=== PATIENT | male | born 1970 | race Caucasian/White ===

== ENCOUNTER 2021-02-14 12:11 | Emergency (ER) | payer BC, SELFPAY ==
[2021-02-14 12:28] VITALS: BP 90/64; PULSE 106; RESP 12; TEMP 36.6; O2SAT 98
[2021-02-14 13:24] VITALS: BP 103/64; PULSE 85
--- NOTE | 2021-02-14 13:27 | ED.SKABFB ---
HPI - Skin/Abscess/Foreign Bdy General Chief complaint: Skin/Abscess/Foreign Body Stated complaint: rash/swelling Time Seen by Provider: 02/14/21 12:30 Source: patient and RN notes reviewed Mode of arrival: ambulatory Limitations: no limitations History of Present Illness HPI narrative: Patient presents today complaining of hives that began on his legs, abdomen, feet, arms since yesterday, but significantly worse since this morning. Unsure what has caused the hives. He reports mild swelling to his lower lip and some swelling of his bilateral hands that started 30 minutes prior to arrival. He took 50 mg of Benadryl at 9:00 this morning and does report a mild improvement. Denies shortness of breath, difficulty swallowing. Unrelated, patient reports poison heidy that has been present over the abdomen and bilateral arms over the past 2 weeks. He has been using some zinc oxide and other asyp-lks-ecnwahy medications and states the areas have dried out and have slowly started to improve, however, there has been some crusting to the left forearm that he wanted to get checked out. MD complaint: rash Related Data Allergies Allergy/AdvReac Type Severity Reaction Status Date / Time No Known Allergies Allergy Verified 02/14/21 12:27 Review of Systems Review of Systems: Narrative: CONSTITUTIONAL: Denies body aches, fever, chills, or sweats. EYES: Denies visual changes, redness, or discharge. ENT: Denies rhinorrhea, congestion, sore throat, or otalgia, difficulty swallowing, scratchiness in the throat, swelling of the tongue.+ Lower lip swelling CARDIOVASCULAR: Denies chest pain, palpitations, or edema. RESPIRATORY: Denies cough or dyspnea. GASTROINTESTINAL: Denies abdominal pain, nausea, vomiting, or diarrhea. GENITOURINARY: Denies dysuria or hematuria. SKIN:+ Rash, bilateral hand swelling MUSCULOSKELETAL: Denies back pain, joint pain, or myalgia. NEUROLOGIC: Denies headache, numbness, tingling, or weakness. PSYCH: Denies depression or anxiety. [facility] Family History Family History Father Diabetes mellitus Sibling Family history of malignant melanoma, Onset Age: 45 Social History Social History Smoking status: Never smoker Second hand tobacco smoke exposure: No Alcohol intake: never Comments At time of signature, I have reviewed and agree with nursing past medical, surgical, social and family history unless otherwise noted. Please see nursing chart for further information. There is no relevant family history pertinent to the presenting complaint Exam Narrative: Exam Narrative: GENERAL: Mildly ill-appearing, well-nourished, and in no acute distress. HEAD: Normocephalic, atraumatic. EYES: EOMI. No redness or drainage. Conjunctivae normal. ENT: Mucous membranes pink and moist. Nares clear. No rhinorrhea. Throat normal. Uvula midline. Mild swelling to the lower lip. Tongue normal. Palate normal. NECK: Normal AROM. Supple. No lymphadenopathy. CHEST: No respiratory distress. Clear to auscultation. HEART: Regular rate and rhythm. No murmur appreciated. Normal peripheral pulses. MUSCULOSKELETAL: No bony tenderness. EXTREMITIES: Normal range of motion. Moderate swelling and erythema to the bilateral hands. Ring is very tight on the left fourth finger. Unable to remove on his own. See procedure note. Distal sensation intact. Capillary refill normal. Radial pulses normal. Range of motion in the wrist and fingers limited due to swelling. SKIN: Warm, dry. Capillary refill normal. Diffuse urticarial lesions to the back, abdomen, legs, arms, chest, neck. Patient also has old crusting, dry lesions to the bilateral forearms with honey crusting. These lesions are covering most of the bilateral forearms, left greater than right. There is some mild induration to the left forearm. No signs of cellulitis to the right
== END 2021-02-14 13:29 | disposition home or self-care (01) ==
PROVIDERS: Emergency Provider Nurse Practitioner; PCP Family Medicine
DX: L50.9 Urticaria, unspecified (principal); L01.00 Impetigo, unspecified
CPT/HCPCS: 96372; 99213; G0463; J1100

== ENCOUNTER → 2023-04-27 09:53 | Outpatient (CLI) | payer BC, SELFPAY ==
--- NOTE | ~2023-04-27 | XR_ITS ---
AP view of the pelvis and AP and lateral views of the left hip Clinical history: Pain Findings: No acute fracture or dislocation is seen. Osseous alignment is anatomic. Bilateral hip and SI joint spaces are preserved. Soft tissues are unremarkable. Impression: No significant abnormality is seen. Reviewed, dictated and finalized at [facility]. Impression: No significant abnormality is seen.
--- NOTE | ~2023-04-27 | XR_ITS ---
Lumbosacral Spine: AP and lateral views Clinical History: Pain Findings: The normal lordotic curve is maintained. The vertebral bodies and posterior elements are i ntact. There is mild degenerative disc narrowing at L4-L5. Remaining disc spaces are preserved. There is mild to moderate facet arthropathy at L4-L5 and L5-S1. The sacroiliac joints are normally outline d. Impression: Mild degenerative spondylosis of the lower lumbar spine, as detailed above. Reviewed, dictated and finalized at location M. Impression: Mild degenerative spondylosis of the lower lumbar spine, as detailed above.
== END ==
PROVIDERS: PCP Physician Assistant; Visit Provider Physician Assistant
DX: M25.552 Pain in left hip (principal); M47.896 Other spondylosis, lumbar region
CPT/HCPCS: 72100; 73502

== ENCOUNTER 2024-02-01 01:38 | Day surgery (SDC) | payer BC, SELFPAY ==
[2024-01-31 10:44] VITALS: BMI 28.5
--- NOTE | 2024-01-31 10:47 | PC.NURSE ---
Report to the Outpatient Waiting Room, entrance under the green pavilion located off [facility], at time 0800 on date 02/01/24. Planned Procedure Time: 1000. Time changes happen often and if your time is changed the preop area will call you the afternoon before. - You and your visitor will be asked to self-screen and do not enter if you have any COVID symptoms. - A mask is optional within the hospital at this time. Patients may have clear liquids (water, carbonated beverages, clear teas, apple juice) until 3 hours prior to surgery with a maximum of 20 ounces. - No food from midnight until time of surgery Take the following medications with a SIP of water the morning of surgery: N/A DO NOT STOP ANY OF YOUR OTHER PRESCRIPTION MEDICATIONS PRIOR TO SURGERY ?EXCEPT THE FOLLOWING Medications to discontinue per physician: N/A Date to take last dose: N/A Please no make-up, nail kiswahili, hairspray, perfume, deodorant, or body powder the day of surgery. No jewelry (including any body piercings) or valuables the day of surgery, leave them at home. Please take a shower or bath the night before, or the morning of, surgery with an antibacterial soap. Wear comfortable, loose fitting clothing. - Jewelry must be removed prior to entering the operating room. Rings and piercings that are not removed may be cut off. - The hospital will not accept responsibility for valuables. - Please leave all valuables, including medications, at home the day of surgery. If you are going home after surgery, a licensed wagon driver salesperson must drive you home. - NO public transportation without another adult if you receive anesthesia. - We recommend that an adult stay with you for 24 hours following discharge. - We also recommend that you do not drive, make important decision, drink alcoholic beverages, or take any drugs that were not prescribed by your health care provider for at least 24 hours after your discharge time. Follow any additional instructions given to you from your surgeon. If you or anyone in your household have experienced Covid symptoms in the past week, please notify your surgeon or the nurse liaison at the phone number below for possible testing. Telephone instructions given to PT Katie MAURER and asked if any additional questions and then verbalized understanding. Patient advised to call surgeon office or pre surgery nurse liaison [phone] if any additional questions.
[2024-02-01] VITALS (10 sets, daily range): BP systolic 118–140; BP diastolic 64–84; PULSE 74–89; RESP 12–20; TEMP 36.1–36.6; O2SAT 94–99
[2024-02-01] MEDS: ACETAMINOPHEN 500 MG TABLET 1000 MG PO (08:37)
[2024-02-01] MEDS: KETOROLAC 15 MG/ML VIAL (*BKC) IV PUSH (08:37)
--- NOTE | 2024-02-01 08:38 | P.PNAN_ITS ---
Anes - Initial Pre Proc Eval Procedure: Operation Date: 02/01/24 10:00 Proposed Procedures p Robotic Repair Right Inguinal Hernia with Mesh - Diego Gonzalez MD Date/Time: 02/01/24 08:38 Surgeon: Diego Gonzalez MD Pre Op Diagnosis: Rt Ing Hernia Patient Data Age: 53 Gender: M Height: 1.8 m Weight: 93 kg Allergies Allergy/AdvReac Type Severity Reaction Status Date / Time No Known Allergies Allergy Verified 01/31/24 10:44 Home Medications Medication Instructions Recorded Confirmed Type No Home Medications 04/27/23 01/31/24 History Patient hx anesthesia problems: none Family hx anesthesia problems: none Results Review: All pre-operative results and documents have been reviewed as part of the pre- operative evaluation. [facility] Surgical History Surgical History H/O oral surgery Family History Family History Father Diabetes mellitus Heart disease Sibling Family history of malignant melanoma, Onset Age: 45 Grandparent Family history of malignant melanoma Diabetes mellitus Mother Heart disease Cerebrovascular accident Social History Social History Smoking status: Never smoker Second hand tobacco smoke exposure: No Alcohol intake: never Substance use: never Substance use type: does not use Living arrangements: with family Occupation/Education: occupation Additional occupation/education comments: employed at [employer] concerns: No Anes - Eval Final PreProcedure Day of Procedure 02/01/24 08:38 Patient weight: overweight Heart: regular rate and rhythm Lungs: clear to auscultation Airway: Mallampati scale class 1 Neurological: alert and oriented Last oral intake: >/= 8 hours ASA classification: II Emergent: no Anesthetic plan: proceed Anesthesia type and monitoring: general ETT and standard monitoring Results Review: All pre-operative results and documents have been reviewed as part of the pre- operative evaluation. Informed Consent: The patient's anesthetic plan and its attendant risks and benefits were discussed with the patient/family/POA. Questions were solicited and answers provided to the satisfaction of the patient/family/POA.
--- NOTE | 2024-02-01 09:15 | WPDHPUPDATE1 ---
History and Physical Update Update Date/Time: 02/01/24 09:15 History and Physical has been reviewed, including an updated exam of the patient. There are NO changes in the patient's condition. Risks, benefits, and alternatives have been discussed and questions answered. Patient agrees to proceed with procedure.
[2024-02-01] MEDS: LACTATED RINGERS 1,000 ML 30 ML IV CONT ×3 (09:17→12:54)
[2024-02-01] MEDS: ceFAZolin 2 GM/D5W 50 ML 2 GM/50 ML BAG IVPB (09:30)
[2024-02-01] MEDS: BUPIVACAINE/EPINEPHRINE 0.5% 30 ML VIAL INFILTRATE (11:31)
--- NOTE | 2024-02-01 12:03 | W.PM.PROC2 ---
Procedure Note - Detailed Date of Procedure 02/01/24 Pre-op Diagnosis Rt Ing Hernia Post-op Diagnosis Same Procedure Performed Robotic laparoscopic right inguinal hernia repair with mesh Surgeon Diego Gonzalez MD Jack Frame Tender Maciel NIEVES Anesthesia General and Local Indications Patient is as had an enlarging bulge in the right groin for quite some time. It is becoming increasingly more uncomfortable and sometimes painful. He was seen in the office and found to have a reducible right inguinal hernia. He is taken to surgery now for robotic laparoscopic repair with mesh. Findings Patient had a large indirect hernia. No left-sided hernia was noted. Description of Procedure Patient was taken to surgery and general and tracheal anesthesia was introduced. The abdomen and genitalia were prepped and draped. The the 3 trocar sites to be used were marked on the skin. Local was infiltrated into each site as well as the abdominal wall. The initial trocar was in the left upper quadrant. This was then applied Medical 5 mm trocar. When this was in place we insufflated the abdomen. The other 2 trocars were placed using 8 mm robotic trocars. I then switched out the left-sided trocar for another 8 mm robotic trocar. Patient was then placed in steep Trendelenburg. Robotic arms were brought in and docked. The camera was placed and targeted. Instruments were placed in the other 2 ports. Surgeon went to the robotic console. A peritoneal flap was started just above the inguinal canal structures. There were a few omental and colonic adhesions on the lateral aspect of the inguinal canal which were taken down without difficulty. The peritoneal flap was then developed broadly proceeding from anterior to posterior. Medially, the dissection was close to the posterior aspect of the rectus abdominis muscle. We followed this down to the Mynor's ligament and urinary bladder. Carefully the dissection was carried out medially and the pubis was identified. Filmy Hector lower adhesions in the midline and just across the midline were then taken down in the area of the left rectus abdominis muscle. We exposed the pubis and Mynor's ligament. Dissection was continued about 2 cm posterior to Mynor's ligament. Bipolar and unipolar cautery were used for hemostasis. At this point I went laterally and dissected this aspect of the flap to the pectinate line. From there, the hernia sac was gently reduced and the transversalis sling over the inguinal canal structures was carefully divided. This process was repeated and eventually the entire hernia sac was reduced. Once I found the into the hernia sac, I carefully dissected it from the cord structures. The vas deferens and cord vessels were easily seen. They were carefully avoided. The hernia sac and a lipoma were dissected away from the cord structures. Eventually the hernia sac was dissected entirely and I then continued dissecting peritoneum posteriorly away from the cord structures until at least 4 cm was available starting from the lower margin of the internal ring. I then went back to the area of Mynor's ligament and dissected some of the fatty tissue at its medial aspect. I encountered some bleeding here that required bipolar cautery but eventually was controlled. Once enough of the fatty tissue to the medial aspect of the cord structures and external iliac vein had been dissected away, I then continued to dissect the peritoneum well away from the cord structures and Mynor's ligament as well as the pectinate line. The dissection at this point looked quite good. A 17 x 12 cm right mid 3DMax mesh was then placed in the abdomen. The mesh was positioned appropriately with the transverse line overlying the vas deferens. A 3-0 Vicryl was then used to suture the mesh medially to Mynor's ligament. Two additional 3-0 Vicryl sutures were placed anteriorly. One was on the lateral aspect of the inferior epigastric vessels, 1 wa
[2024-02-01] MEDS: fentaNYL CITRATE INJ (*CRX) 100 MCG/2 ML VIAL 25 MCG IV PUSH ×3 (12:07→12:19)
[2024-02-01] MEDS: ONDANSETRON INJ 4 MG/2 ML VIAL IV PUSH (12:52)
[2024-02-01] MEDS: oxyCODONE HCL (*CRX) 5 MG TAB IR PO (13:54)
[2024-02-01] MEDS: SCOPOLAMINE 1 MG PATCH 1 PATCH TRANSDERM (13:55)
== END 2024-02-01 14:55 | disposition home or self-care (01) ==
PROVIDERS: PCP Nurse Practitioner Family; Visit Provider Surgery
PROC: 8E0Y4CZ Robotic Assisted Procedure of Lower Extremity, Percutaneous Endoscopic Approach (ICD-10-PCS; CPT 49650; principal; 2024-02-01 10:00)
DX: K40.90 Unilateral inguinal hernia, without obstruction or gangrene, not specified as recurrent (principal)
CPT/HCPCS: 49650; S2900; 36415; 86850; 86900; 86901; A9270; C1781; J0690; J1100; J1885; J2250; J2405; J2704; J3010; J7120

== ENCOUNTER 2024-03-05 10:54 | Outpatient (CLI) | payer BC, SELFPAY ==
--- NOTE | ~2024-03-05 | US_ITS ---
EXAMINATION: US soft tissue groin RT DATE: 03/05/2024 11:12 INDICATION: Unilateral inguinal hernia without obstruction. TECHNIQUE: Multiple grayscale and Doppler ultrasound images of the right groin were obtained. COMPARISON: None FINDINGS: In the right inguinal region, there is a 5.3 x 4.9 x 3.7 cm hypoechoic and anechoic mass. IMPRESSION: 1. 5.3 cm mass in the right inguinal region status post hernia repair on 02/01/2024, likely a hematoma . Reviewed, dictated and finalized at location A. IMPRESSION: 1. 5.3 cm mass in the right inguinal region status post hernia repair on 024, likely a hematoma.
== END 2024-03-05 10:55 ==
LOC: MICIMG 10:55
PROVIDERS: PCP Surgery; Visit Provider Surgery
DX: K40.90 Unilateral inguinal hernia, without obstruction or gangrene, not specified as recurrent (principal)
CPT/HCPCS: 76882

== ENCOUNTER 2024-09-24 09:37 | Outpatient (CLI) | payer BC, SELFPAY ==
--- NOTE | 2024-10-10 15:08 | P.SLEEP_ITS ---
Sleep Study - Home Unattended Date of Study: 09/24/24 Ordering Provider: Madelaine Borrero DO Interpreting Provider: Madelaine Borrero DO Home Sleep Study Type: Watch PAT Height: 1.8 m Weight: 90.718 kg Body Mass Index: 27.8 Neck Circumference (inches): 15.5 [place]: 17 Reason for Sleep Study Snoring, daytime hypersomnia Sleep History The patient is a 53-year-old male that had a sleep study ordered for evaluation of sleep apnea. The patient occasionally awakens from sleep short of breath. He rarely awakens at night with heartburn, belching or cough. He constantly snores loudly enough that others complain. He frequently has trouble sleeping when he has a cold. He rarely wakes up gasping for air throughout the night. He frequently has breathing problems at night observed by himself or others. He rarely sweats excessively at night. He occasionally has heart palpitations or irregular heartbeats during the night. He occasionally falls asleep during the day. He denies falling asleep while driving. He occasionally experiences loss of muscle tone when extremely emotional. He occasionally has trouble at school or work due to sleepiness. He denies sleep paralysis and hypnagogic/ hypnopompic hallucinations. He denies feeling afraid of going to sleep. He rarely has nightmares. He occasionally remembers his dreams. He occasionally has thoughts racing through his mind. He rarely feels sad, depressed or anxious. He denies having muscular tension. He rarely notices parts of his body jerk. He rarely kicks during the night. He rarely has crawling and aching feelings in his legs but occasionally has leg pain during the night. He rarely grinds his teeth during sleep and rarely awakens with morning jaw pain. He is rarely bothered by pain during the day but never awakened by pain during the night. He occasionally wakes up feeling stiff in the morning. He rarely wakes up with sore or achy muscles. He rarely wakes up with pain in the neck, spine or other joints. He goes to bed at 11:00 p.m. on weekdays and at midnight on the weekends. It takes him 10 minutes to fall asleep. He wakes up 3-4 times throughout the night to urinate and is able to fall back asleep within 5-10 minutes. He wakes up at 6:00 a.m. on weekdays and between 7-8 a.m. on the weekends. he typically gets 7 hours of sleep per night. He currently lives with his and 7 children. He denies consuming any caffeinated beverages within 2 hours of bedtime. He denies engaging in physical exercise before bedtime. He will read before falling asleep but denies watching television. He denies taking naps in afternoon or the evening. He consumes 1 can of Coca-Cola per day. He denies tobacco, alcohol and recreational drug use. [facility] Surgical History Surgical History H/O oral surgery Hx of inguinal hernia repair Robotic laparoscopic right inguinal hernia repair with mesh 02/01/24 Family History Family History Father Diabetes mellitus Heart disease Sibling Family history of malignant melanoma, Onset Age: 45 Grandparent Family history of malignant melanoma Diabetes mellitus Mother Heart disease Cerebrovascular accident Social History Social History Social History: Caffeine-soda Smoking status: Never smoker Second hand tobacco smoke exposure: No Alcohol intake: never Substance use: never Substance use type: does not use Living arrangements: with family Occupation/Education: occupation Additional occupation/education comments: employed at [employer] concerns: No Medications Home Medications Medication Instructions Recorded Confirmed Type eszopiclone 2 mg tablet (Lunesta) 2 mg PO QHS #1 tablet 07/31/24 07/31/24 Rx Sleep Procedure The sleep study was completed using [employer] a technically adequate device with seven channels: peripheral arterial tone, actigraphy, body position, snore, respiratory movement, pulse oximetry, sleep staging, and heart rate. Prior to using the device, the patient received verbal and written instructions for its application and was provided with the help desk phone number for additional telephonic instruction with 24-hour availability of qualified personnel to answer questions. The study was scored using CMS guidelines. Sleep Architecture The total recording time is 7 hrs, 22 min. The total sleep time is 6 hrs, 19 min. Sleep latency is 26 minutes. REM latency is 53 minutes. The patient had 8 episodes of waking. Sleep architecture shows 12.6% deep sleep, 58.6% light sleep, and (as % Total Sleep Time) showed NREM (Light 58.6%; Deep 12.6%), and a 28.8% stage REM. The patient spent 25.6% of total sleep time in the supine po sition. Sleep efficiency was 85.75. Respiratory Analysis The overall AHI (pAHI 4%:) is 21.2. The central AHI is 8.7. The AHI was 14.3 in NREM and 38.1 in REM sleep. The AHI was 57.6 in Supine and 8.5 in Non-supine sleep. Percent of Russ Le respirations is 0.0. Oximetry Data The oxygen desaturation index (DAKOTA 4%:) is 21.0. The mean saturation is 94%, and the lowest saturation is 83%. Time spent with saturation < 88% is 10.0 minutes. Snoring Profile Snoring average intensity is 49 dB. The patient snored above 45 decibels for 201.0 minutes, 52.9% of sleep time. Cardiac Profile The average pulse rate is 66 beats per minutes. The lowest pulse rate is 55 bpm. The highest pulse rate reported is 101 bpm. Atrial fibrillation was not detected. Premature beats occur <0.1 per minute. Assessment and Plan Assessment and Plan (1) ROSIBEL (obstructive sleep apnea): Code(s): G47.33 - Obstructive sleep apnea (adult) (pediatric) Status: Acute Assessment and Plan: The patient had an overall AHI of 21.2 with desaturation down to 83%. This is consistent with moderate sleep apnea. The patient had a central apnea index of 8.7, which is elevated (normal < 5). The patient had a REM AHI of 38.1. Due to the severity of the patient's sleep apnea in REM sleep being greater than double the AHI in NREM sleep as well as the central apnea index being elevated, the víctor gaston is not an ideal candidate for autoPAP. AutoPAP can increase the severity and frequency of central apneas. I recommend that the patient have a CPAP Titration with the use of a hypnotic to ensure we obtain enough sleep data and find an optimal pressure. The patient will need an echocardiogram to rule out cardiogenic causes for an elevated central apnea index. Data The data obtained during this sleep study is adequate for interpretation. Certification This sleep study has been reviewed by a board certified sleep medicine physician.
[2024-10-10 15:09] VITALS: BMI 27.8
== END 2024-09-25 09:47 | disposition home or self-care (01) ==
PROVIDERS: PCP Surgery; Visit Provider Family Medicine
DX: G47.19 Other hypersomnia (principal); G47.33 Obstructive sleep apnea (adult) (pediatric)
CPT/HCPCS: 95800

== ENCOUNTER 2024-11-03 07:33 | Outpatient (CLI) | payer BC, SELFPAY ==
--- NOTE | 2024-11-03 08:00 | ECHO_ITS ---
Patient Info Name: Winston Souza Age: 53 years : 1970 Gender: Male Ht: 71 in Wt: 195 lbs BSA: 2.12 m2 HR: 72 bpm BP: 137 / 82 mmHg Heart Rhythm: Sinus Rhythm Technical Quality: Good Exam Date: 11/03/2024 8:12 AM Exam Location: Echo Lab Patient Status: Outpatient Admit Date: 11/03/2024 Staff Ordering Physician: Madelaine Borrero DO [place] Wet Process: Gardenia Serrato RDCS Attending Provider: Madelaine Borrero DO Referring Physician: Adair PHILIPPE; Exam Type: CA echo doppler color flow Study Info Indications - elevated central apnea index Complete two-dimensional, color flow and Doppler transthoracic echocardiogram is performed. Summary 1. Complete two-dimensional, color flow and Doppler transthoracic echocardiogram is performed. 2. There is normal left ventricular function with an EF of 60-65%. 3. There is normal LV size normal thickness. 4. E to a ratio is greater than 1 and E to E prime is 8 there is normal diastolic function. 5. Aortic valve is trileaflet and there is no aortic insufficiency. 6. Mitral valve appears to collapse normally and there is no mitral regurgitation. 7. There is minimal tricuspid regurgitation and the peak RV pressure was measured at 39 which is equal to mild pulmonary hypertension. 8. There is no pericardial effusion and the aorta is of normal size. 9. Left atrium and right atrium were also normal. Left Ventricle Left ventricular chamber dimension is normal. Left ventricular systolic function is hyperdynamic, estimated at 60-65%. There is no increased left ventricular wall thickness. Left ventricular septal wall motion is normal. The left ventricular diastolic function is normal. E/e' 7.4 is normal. Right Ventricle Right ventricular chamber dimension is normal. Right ventricular systolic function is normal. Left Atria Left atrial chamber dimension is normal. There is no mass visualized in the left atrium. Right Atria Right atrial chamber dimension is normal. Aortic Valve The aortic valve is trileaflet. There is no aortic valve sclerosis. There is no aortic valve stenosis. There is no aortic valve regurgitation. Pulmonic Valve The pulmonic valve is not well visualized. There is no pulmonic valve stenosis. There is no pulmonic regurgitation. Mitral Valve The mitral valve has normal leaflets. There is no mitral valve stenosis. There is no mitral valve regurgitation. Tricuspid Valve The tricuspid valve leaflets are normal. There is no significant tricuspid valve stenosis. There is trace tricuspid valve regurgitation. Mild pulmonary hypertension, estimated pulmonary arterial systolic pressure is 39 mmHg. Pericardium/Pleural The pericardium appears normal. There is no pericardial effusion. Inferior Vena Cava Normal inferior vena cava with >50% collapse upon inspiration consistent with Empty right atrial pressure, 10 mmHg. Aorta The aortic root size at the sinus of Valsalva is normal. The prox ascending aorta size is normal. Left Ventricular Outflow Tract Name Value Normal LVOT 2D LVOT Diameter 2.1 cm LVOT Doppler LVOT Peak Gradient 5 mmHg LVOT Mean Gradient 2 mmHg LVOT VTI 19 cm LVOT VTI/AV VTI Ratio 0.9 LVOT Stroke Volume 65 ml LVOT CO 4.6 l/min LVOT CI 2.2 l/min/m2 Pulmonic Valve Name Value Normal RVOT Doppler RVOT Peak Gradient 3 mmHg PV Doppler PV Peak Gradient 6 mmHg Mitral Valve Name Value Normal MV Doppler MV Decel Douglas 366 cm/s2 MV PHT 56 ms MV Area (PHT) 3.9 cm2 4.0-5.0 MV Diastolic Function MV E Peak Velocity 70 cm/s MV A Peak Velocity 57 cm/s MV E/A 1.2 MV Decel Time 193 ms MV Annular TDI MV E/e' (Septal) 8.9 <=8.0 MV E/e' (Lateral) 5.9 <=8.0 MV E/e' (Average) 7.4 Tricuspid Valve Name Value Normal TV Regurgitation Doppler TR Peak Velocity 271 cm/s TR Peak Gradient 25 mmHg Estimated PAP/RSVP RA Pressure 10 mmHg <=5 PA Systolic Pressure 39 mmHg <36 RV Systolic Pressure 39 mmHg <36 Aorta Name Value Normal Ascending Aorta Ao Root Diameter (MM) 3.7 cm Ao Root Diam Index (MM) 1.7 cm/m2 Aortic Valve Name Value Normal AV Doppler AV Peak Velocity 122 cm/s AV Peak Gradient 6 mmHg AV Mean Gradient 3 mmHg AV VTI 22 cm AV Area (Cont Eq VTI) 3.0 cm2 >=3.0 AV Area (Cont Eq Michael) 3.3 cm2 AV Regurgitation 2D LVOT Area 3.4 cm2 Ventricles Name Value Normal LV Dimensions 2D/MM IVS Diastolic Thickness (2D) 1.1 cm 0.6-1.0 LVID Diastole (2D) 4.8 cm 4.2-5.8 LVIW Diastolic Thickness (2D) 1.0 cm 0.6-1.0 LVID Systole (2D) 3.1 cm 2.5-4.0 LVOT Diameter 2.1 cm LV Mass (2D Cubed) 183.01 g 88.00-224.00 LV Mass Index (2D Cubed) 86 g/m2 49-115 Relative Wall Thickness (2D) 0.41 LV Fractional Shortening/Ejection Fraction 2D/MM LV Fractional Shortening (2D) 36 % 25-43 LV EF (2D Teicholz) 65 % 52-72 LV Diastolic Volume (4C MOD) 72 ml LV EF (4C MOD) 79 % LV Diastolic Volume (2C MOD) 56 ml LV EF (2C MOD) 74 % LV Diastolic Volume (BP MOD) 63 ml 62-150 LV Diastolic Volume Index (BP MOD) 30 ml/m2 34-74 LV Systolic Volume (BP MOD) 15 ml 21-61 LV Systolic Volume Index (BP MOD) 7 ml/m2 11-31 LV EF (BP MOD) 76 % 52-72 LV Diastolic Length (4C) 8.5 cm LV Systolic Length (4C) 6.8 cm LV Stroke Volume (4C MOD) 57 ml Atria Name Value Normal LA Dimensions LA Dimension (MM) 3.7 cm 3.0-4.1 LA Volume (4C A-L) 32 ml LA Volume (BP A-L) 36 ml RA Dimensions RA Area (4C) 14.9 cm2 <=18.0 Report Signatures
== END 2024-11-03 07:34 | disposition home or self-care (01) ==
PROVIDERS: PCP Nurse Practitioner Family; Visit Provider Family Medicine
DX: G47.31 Primary central sleep apnea (principal); G47.33 Obstructive sleep apnea (adult) (pediatric); I36.1 Nonrheumatic tricuspid (valve) insufficiency
CPT/HCPCS: 93306

== ENCOUNTER 2024-12-10 09:46 | Outpatient (CLI) | payer BC, SELFPAY ==
--- OUTSIDE RECORDS SUMMARY | 2024-12-10 10:36 | XMS_ITS | CONTINUITY OF CARE DOCUMENT ---
Author Name katerine garcias Address Unknown Organization [facility] Office Address [address] [address] [place] [address] Phone [phone] Care Team Providers Care Informatics Coordinator Name Role Phone Andrew Michelle MD Unavailable Andrew Michelle MD Unavailable INSURANCE PROVIDERS Payer name Policy type / Coverage type [employer] party ID [facility] [id number]
--- NOTE | 2025-01-05 09:18 | WPDSLEEPSTUD ---
Sleep Study Date of Study: 12/10/24 Ordering Provider: Madelaine Borrero DO Interpreting Physician: Madelaine Borrero DO Sleep Study Type: CPAP Titration Height: 1.8 m Weight: 90.718 kg Body Mass Index: 27.8 Neck Circumference (inches): 17 Badger: 16 Reason for Sleep Study Daytime hypersomnia Sleep History The patient is a 54-year-old male that had a sleep study ordered for evaluation of sleep apnea. The patient occasionally awakens from sleep short of breath. He rarely awakens at night with heartburn, belching or cough. He constantly snores loudly enough that others complain. He frequently has trouble sleeping when he has a cold. He rarely wakes up gasping for air throughout the night. He frequently has breathing problems at night observed by himself or others. He rarely sweats excessively at night. He occasionally has heart palpitations or irregular heartbeats during the night. He occasionally falls asleep during the day. He denies falling asleep while driving. He occasionally experiences loss of muscle tone when extremely emotional. He occasionally has trouble at school or work due to sleepiness. He denies sleep paralysis and hypnagogic/ hypnopompic hallucinations. He denies feeling afraid of going to sleep. He rarely has nightmares. He occasionally remembers his dreams. He occasionally has thoughts racing through his mind. He rarely feels sad, depressed or anxious. He denies having muscular tension. He rarely notices parts of his body jerk. He rarely kicks during the night. He rarely has crawling and aching feelings in his legs but occasionally has leg pain during the night. He rarely grinds his teeth during sleep and rarely awakens with morning jaw pain. He is rarely bothered by pain during the day but never awakened by pain during the night. He occasionally wakes up feeling stiff in the morning. He rarely wakes up with sore or achy muscles. He rarely wakes up with pain in the neck, spine or other joints. He goes to bed at 11:00 p.m. on weekdays and at midnight on the weekends. It takes him 10 minutes to fall asleep. He wakes up 3-4 times throughout the night to urinate and is able to fall back asleep within 5-10 minutes. He wakes up at 6:00 a.m. on weekdays and between 7-8 a.m. on the weekends. he typically gets 7 hours of sleep per night. He currently lives with his and 7 children. He denies consuming any caffeinated beverages within 2 hours of bedtime. He denies engaging in physical exercise before bedtime. He will read before falling asleep but denies watching television. He denies taking naps in afternoon or the evening. He consumes 1 can of Coca-Cola per day. He denies tobacco, alcohol and recreational drug use. [facility] Surgical History Surgical History Hx of inguinal hernia repair Robotic laparoscopic right inguinal hernia repair with mesh 02/01/24 H/O oral surgery Family History Family History Father Diabetes mellitus Heart disease Sibling Family history of malignant melanoma, Onset Age: 45 Grandparent Family history of malignant melanoma Diabetes mellitus Mother Heart disease Cerebrovascular accident Social History Social History Social History: Caffeine-soda Smoking status: Never smoker Second hand tobacco smoke exposure: No Alcohol intake: never Substance use: never Substance use type: does not use Living arrangements: with family Occupation/Education: occupation Additional occupation/education comments: employed at [employer] concerns: No Medications Home Medications ?Medication ?Instructions ?Recorded ?Confirmed ?Type eszopiclone 2 mg tablet (Lunesta) 2 mg PO QHS #1 tablet 10/13/24 Rx Sleep Procedure A full night CPAP Titration using the Evermind SleepBugSense multi-channel system recorded the standard physiologic parameters including EEG, EOG, submentalis EMG, anterior tibialis EMG, EKG, body position, nasal and oral airflow using nasal pressure sensor and thermistor.? Respiratory parameters of chest and abdominal movements were recorded with Respiratory Inductance Plethysmography belts. Oxygen saturation was recorded by pulse oximetry. Video monitoring was also performed. Sleep stages, periodic limb movements, and EEG arousals were scored in 30 second epochs according to the criteria of the AASM Scoring Manual. The Apnea-Hypopnea Index was calculated using CMS guidelines for definition of hypopnea with 4% O2 desaturations while scoring respiratory events. Sleep Architecture The total recording time was 443.1 minutes.? The total sleep time was 401.5 minutes. Sleep latency was 5.0 minutes. REM latency was 61.5 minutes. Sleep efficiency was 90.6%. The patient had 22 awakenings for an awakening index of 3.3. Wake after Sleep Onset time was 36.5 minutes. The patient spent 27.0 minutes, 6.7% of total sleep time in Stage N1. The patient spent 239.0 minutes, 59.5% in Stage N2. The patient spent 40.0 minutes, 10.0% in Stage N3. The patient spent 95.5 minutes, 23.8% in Stage REM. Respiratory Analysis The patient had 8 hypopneas, 1 obstructive apnea and 9 central apneas for an overall Apnea Hypopnea Index of 2.7 events per hour. The REM Apnea Hypopnea Index was 1.9. The NREM Apnea Hypopnea Index was 2.9. The patient had a Central Apnea Hypopnea Index of 1.3.There was no evidence of Russ-Le Respirations. The patient was started on CPAP 5 cm H2O and titrated to CPAP 10 cm H2O due to central apneas and hypopneas. The patient was able to fall asleep starting on CPAP 5 cm H2O. The patient was able to achieve REM sleep starting on CPAP 6 cm H2O. The patient was able to achieve a residual AHI less than 5 with both NREM and REM sleep on 6 cm H2O, 9 cm H2O and 10 cm H2O. Arousals There were 55 total arousals for an arousal index of 8.2. There were 14 spontaneous arousals for an index of 2.1. ?There were 7 arousals due to respiratory events for an index of 1.0. There were 0 arousals due to periodic limb movements for an index of 0.? There were 34 arousals due to isolated limb movements for an index of 5.1. Periodic Limb Movements The patient had 42 isolated limb movements with an index of 6.3. The patient had 0 periodic limb movements with index of 0. Patient had a total of 42 limb movements with a total limb movement index of 6.3. Oximetry Data The patient had an average oxygen saturation of 95.2% in sleep with a minimum oxygen saturation of 91.0% and a maximum oxygen saturation of 98.0%. The patient had 13 oxygen desaturations that were 4% or greater resulting in an Oxygen Desaturation Index of 1.9.? The patient spent 0 minutes of total sleep time with an oxygen saturation below 88%. Snoring Profile Snoring was not present during this study. Cardiac Profile The EKG showed normal sinus rhythm. No arrhythmias or premature beats were seen. The patient had an average pulse rate of 60.4 bpm with a minimum pulse rate of 52.0 bpm and a maximum pulse rate of 84.0 bpm. ? EEG Profile No signs of seizure activity seen. Assessment and Plan Assessment and Plan (1) ROSIBEL (obstructive sleep apnea): Code(s): G47.33 - Obstructive sleep apnea (adult) (pediatric) Status: Acute Assessment and Plan: The patient was started on CPAP 5 cm H2O and titrated to CPAP 10 cm H2O due to central apneas and hypopneas. The patient's sleep apnea resolved on multiple pressure settings. I recommend that the patient be prescribed Resmed CPAP 6 cm H2O, size medium Resmed AirTouch F20 full face mask, CPAP filters/tubing and heated humidity. This should be used with all episodes of sleep.? Compliance should be reviewed within 31-90 days of starting therapy for usage greater than 4 hours per night greater than 70% of the nights. The patient should be asked about symptoms such as?excessive daytime sleepiness, quality of sleep, decreased nocturia, increased?mental functioning such as memory, mood, and concentration. Data The data obtained during this sleep study is adequate for interpretation. Certification This sleep study has been reviewed by a board certified sleep medicine physician.
[2025-01-05 12:12] VITALS: BMI 27.8
== END 2024-12-11 06:24 | disposition home or self-care (01) ==
LOC: ANHCSM 09:49
PROVIDERS: PCP Nurse Practitioner Family; Visit Provider Family Medicine
DX: G47.33 Obstructive sleep apnea (adult) (pediatric) (principal)
CPT/HCPCS: 95811